=== PATIENT | female | born 1980 | race African-American/Black ===

== ENCOUNTER 2017-04-23 20:42 | Emergency (ER) | payer OTHER ==
[2017-04-23 21:01] VITALS: BP 116/55; TEMP 98; BMI 29.2
[2017-04-23] MEDS ORDERED: ACETAMINOPHEN 325 MG TABLET (FP) PO ONE (22:41)
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
[2017-04-23] MEDS ORDERED: ACETAMINOPHEN 325 MG TABLET (FP) ONE (22:46)
[2017-04-24 00:09] VITALS: PULSE 88
== END 2017-04-24 00:09 | disposition home or self-care (01) ==
LOC: JER 20:42
DX: O26.892 Other specified pregnancy related conditions, second trimester (principal); M54.2 Cervicalgia; M54.5 Low back pain; R10.2 Pelvic and perineal pain; R51 Headache; D66 Hereditary factor VIII deficiency; V43.52XA Car driver injured in collision with other type car in traffic accident, initial encounter; Y92.414 Local residential or business street as the place of occurrence of the external cause; Y93.89 Activity, other specified; Y99.8 Other external cause status; Z3A.14 14 weeks gestation of pregnancy
CPT/HCPCS: 76801-TC; 99283-25